=== PATIENT | female | born 1995 | race Caucasian/White ===

== ENCOUNTER 2022-02-12 06:20 | Emergency (ER) | payer OTHER ==
[~2022-02-12] VITALS: Ht 160 cm; Wt 79.5 kg
[2022-02-12] MEDS ORDERED: DIPHENOXYLATE/ATROP 2.5-0.025 MG TABLET PO ONE (07:45)
[2022-02-12] MEDS ORDERED: IBUPROFEN 600 MG TABLET PO ONE (07:45)
[2022-02-12] MEDS ORDERED: ACETAMINOPHEN 500 MG TABLET PO ONE (07:45)
[2022-02-12 07:50] LABS: COVID AG,FIA SOURCE NASOPHARYNGEAL
[2022-02-12 08:12] LABS: INFLUENZA TYPE A NEGATIVE FOR TYPE A (NEGATIVE); INFLUENZA TYPE B NEGATIVE FOR TYPE B (NEGATIVE)
[2022-02-12 08:19] VITALS: BP 124/65
[2022-02-12] MEDS ORDERED: IBUP-1554 PO (08:26)
[2022-02-12] MEDS ORDERED: GUAIFDM PO (08:26)
[2022-02-12] MEDS ORDERED: ACET-66 PO (08:26)
[2022-02-12] MEDS ORDERED: DIPH-654 PO (08:26)
== END 2022-02-12 08:37 | disposition home or self-care (01) ==
LOC: EMS 06:22
DX: J06.9 Acute upper respiratory infection, unspecified (principal); Z20.822 Contact with and (suspected) exposure to COVID-19
CPT/HCPCS: 87804; 99284; Z7502; Z7610

== ENCOUNTER 2022-04-09 21:07 | Emergency (ER) | payer OTHER ==
[~2022-04-09] VITALS: Ht 157.5 cm; Wt 78.2 kg
[~2022-04-09 21:07] MED LIST: ACET-66 PO; DIPH-654 PO; GUAIFDM PO; IBUP-1554 PO
[2022-04-09] MEDS ORDERED: SODIUM CHLORIDE 0.9% 2,000 ML IV ONE (22:15)
[2022-04-09] MEDS ORDERED: ACETAMINOPHEN 500 MG TABLET PO ONE (22:15)
[2022-04-09] MEDS ORDERED: ONDANSETRON HCL 4 MG/2 ML VIAL IVP ONE (22:15)
[2022-04-09 22:31] LABS: BASOPHILS % (AUTO) 0.9 % (0.0-2.0); EOSINOPHILS % (AUTO) 1.2 % (1.0-6.0); HEMATOCRIT 43.2 % (36-46); HEMOGLOBIN 14.5 g/dL (12.0-16.0); LYMPHOCYTES # (AUTO) 3.4 K/uL (1.0-4.8); LYMPHOCYTES % (AUTO) 38.4 % (22.0-44.0); MEAN CORPUSCULAR HEMOGLOBIN 31.1 pg (26.0-34.0); MEAN CORPUSCULAR HGB CONC 33.6 G/dL (31.0-37.0); MEAN CORPUSCULAR VOLUME 93 fL (80-100); MONOCYTES # (AUTO) 0.6 K/uL (0.1-1.0); MONOCYTES % (AUTO) 6.2 % (2.0-9.0); NEUTROPHILS # (AUTO) 4.7 K/uL (1.8-7.7); NEUTROPHILS % (AUTO) 53.3 % (40.0-70.0); PLATELET COUNT (AUTO) 227 K/uL (150-450); RED BLOOD CELL COUNT(AUTO) 4.67 MIL/uL (4.00-5.20); RED CELL DISTRIBUTION WIDTH 12.7 % (11.5-14.5)
[2022-04-09 22:38] LABS: ANION GAP 9 mmol/L (8-16); CARBON DIOXIDE 28 mmol/L (22-29); CHLORIDE 103 mmol/L (98-107); CREATININE 0.86 mg/dL (0.60-1.30); GLUCOSE,RANDOM 100 mg/dL (70-110); POTASSIUM 4.1 mmol/L (3.5-5.1); SODIUM SERUM 140 mmol/L (136-145); UREA NITROGEN, BLOOD 19 mg/dL (7-18)
[2022-04-09 22:39] LABS: GLOMERULAR FILTR. RATE CALC > 60 mL/min (>60)
[2022-04-09 22:45] LABS: ALANINE AMINOTRANSFERASE 48 U/L (12-78); ALBUMIN 3.8 g/dL (3.4-5.0); ALKALINE PHOSPHATASE 83 U/L (46-116); ASPARTATE AMINOTRANSFERASE 25 U/L (15-37); BILIRUBIN,TOTAL 0.6 mg/dL (0.1-1.0); LIPASE 69 U/L (73-393); TOTAL PROTEIN, SERUM 7.5 g/dL (6.4-8.2)
[2022-04-09 23:54] VITALS: BP 119/70
[2022-04-10] MEDS ORDERED: KETOROLAC TROMETHAMINE 30 MG/ML VIAL IVP ONE
[2022-04-10] MEDS ORDERED: ONDA-104 PO (00:11)
[2022-04-10] MEDS ORDERED: ACET-66 PO (00:11)
[2022-04-10] MEDS ORDERED: DIPH-654 PO (00:11)
== END 2022-04-10 00:41 | disposition home or self-care (01) ==
LOC: EMS 21:07
DX: K52.9 Noninfective gastroenteritis and colitis, unspecified (principal); Z98.890 Other specified postprocedural states
CPT/HCPCS: 99284; 96374; 96361; 96375; 80053; 83690; 84703; 85025; 36415; J1885; J2405; J7030

== ENCOUNTER 2022-06-04 10:35 | Emergency (ER) | payer OTHER ==
[~2022-06-04] VITALS: Ht 160 cm; Wt 77.3 kg
[~2022-06-04 10:35] MED LIST changes: -GUAIFDM PO; -IBUP-1554 PO; +ONDA-104 PO
[2022-06-04 10:54] LABS: COVID AG,FIA SOURCE NASOPHARYNGEAL
[2022-06-04 11:30] LABS: INFLUENZA TYPE A NEGATIVE FOR TYPE A (NEGATIVE); INFLUENZA TYPE B NEGATIVE FOR TYPE B (NEGATIVE)
[2022-06-04] MEDS ORDERED: BENZ-70 PO (13:14)
[2022-06-04] MEDS ORDERED: AMOX1TAB16 PO (13:14)
[2022-06-04 13:30] VITALS: BP 125/76
== END 2022-06-04 14:07 | disposition home or self-care (01) ==
LOC: EMS 10:44
DX: J06.9 Acute upper respiratory infection, unspecified (principal); Z20.822 Contact with and (suspected) exposure to COVID-19; H66.91 Otitis media, unspecified, right ear; H92.01 Otalgia, right ear
CPT/HCPCS: 87804; 99283